=== PATIENT | female | born 1990 | race Asian ===

== ENCOUNTER 2016-10-11 16:13 | Emergency (ER) | payer OTHER ==
[2016-10-11 16:31] VITALS: BP 98/71
[2016-10-11] MEDS ORDERED: Tetan/Diph/Pertus SYR(Tdap)* 0.5 ML SYR(BOOSTRIX) use SYR IM ONE (17:07)
--- NOTE | 2016-10-11 17:07 | RAD ---
HISTORY: Nasal trauma COMPARISONS: None VIEWS: 3, [place] views of the face, bilateral coned down lateral views of the nasal bones of the nose FINDINGS: BONE DENSITY: Normal. BONES: There is a nondisplaced transverse fracture of the nasal bones bilaterally, better seen on the left than on the right. JOINTS: There is no arthropathy. ALIGNMENT: There is no dislocation. SOFT TISSUES: Unremarkable. OTHER FINDINGS: None. IMPRESSION: NONDISPLACED NASAL BONE FRACTURE.
[2016-10-11] MEDS ORDERED: Ciprofloxacin TAB* 500 MG PO ONE (17:08)
--- NOTE | 2016-10-11 17:36 | UC ---
Epistaxis Nasal HPI - HPI Summary HPI Summary: WINDOW FELL INTO BRIDGE OF NOSE AT 1530 PM TODAY CAUSING SMALL CUT TO BRIDGE OF NOSE, AND RIGHT NOSTRIL NOSEBLEED. NO LOC. NO HEADACHE. NO NECK PAIN. NO FACIAL PAIN (OTHER THAN NOSE) NO PAIN WITH EYE MOVEMENT. 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 - Allergies/Home Medications Allergies/Adverse Reactions: Allergies Allergy/AdvReac Type Severity Reaction Status Date / Time Cephalexin Allergy Severe Rash Verified 10/11/16 16:25 Penicillins Allergy Severe Rash Verified 10/11/16 16:22 PMH/Surg Hx/FS Hx/Imm Hx Previously Healthy: Yes Endocrine History Of: Denies: Diabetes, Thyroid Disease Cardiovascular History Of: Denies: Cardiac Disorders, Hypertension Respiratory History Of: Denies: COPD, Asthma GI/ History Of: Denies: Ulcer - Surgical History Surgical History: None - Family History Known Family History: Negative: Blood Disorder - Social History Occupation: Student Lives: Alone Alcohol Use: None Substance Use Type: None Smoking Status (MU): Never Smoked Tobacco Review of Systems Constitutional: Negative Skin: Other - 0.5 CM X 0.3 CM LACERATION TO CENTRAL NOSE ENT: Nasal Discharge Respiratory: Negative Cardiovascular: Negative Gastrointestinal: Negative Genitourinary: Negative Motor: Negative Neurovascular: Negative Musculoskeletal: Negative Neurological: Negative Psychological: Negative All Other Systems Reviewed And Are Negative: Yes Physical Exam Triage Information Reviewed: Yes Appearance: Well-Appearing, No Pain Distress, Well-Nourished Vital Signs: Initial Vital Signs Temp 99.4 F 10/11/16 16:25 Pulse 72 10/11/16 16:25 Resp 16 10/11/16 16:25 BP 98/71 10/11/16 16:25 Pulse Ox 100 10/11/16 16:25 Vital Signs Reviewed: Yes Eye Exam: Normal Eyes: Positive: Conjunctiva Clear ENT: Positive: Hearing grossly normal, Pharynx normal, Nasal drainage - RESOLVED Dental Exam: Normal Neck exam: Normal Neck: Positive: Supple, Nontender Respiratory Exam: Normal Respiratory: Positive: Chest non-tender, Lungs clear, Normal breath sounds, No respiratory distress Cardiovascular Exam: Normal Cardiovascular: Positive: RRR, No Murmur Abdominal Exam: Normal Abdomen Description: Positive: Nontender Musculoskeletal Exam: Normal Neurological Exam: Normal Psychological Exam: Normal Skin: Positive: Other - 0.5 CM X 0.3 CM LACERATION ON NOSE Epistaxis Nasal Course/Dx - Course Course Of Treatment: WOUND IRRIGATED, DRY NONSTICK DRESSING APPLIED. ALLERGIC TO PCN AND KEFLEX, GIVEN 500 mg CIPRO PO. NO SERVICES ONCALL FOR EITHER ENT OR FACIAL TRAUMA TODAY. PATIENT ADVISED TO CALL REFERRAL NUMBERS TOMORROW FOR DRS: [facility] [place]. - Differential Dx/Diagnosis Differential Diagnosis/HQI/PQRI: Trauma Provider Diagnoses: OPEN NONDISPLACED NASAL BONE FRACTURE - Physician Notifications Discussed Patient Care With: DR LEWIS Time Discussed With Above Provider: 17:00 Instructed by Provider To: Have Pt Call For Appt. Discharge - Discharge Plan Condition: Stable Disposition: HOME Prescriptions: Ciprofloxacin HCl [Cipro 500 MG TAB] 500 mg PO BID #20 tab Patient Education Materials: Nasal Fracture (ED), Laceration Without Closure ( ED) Referrals: [facility] [Outside] Lee Kerns MD [Medical Doctor] - Tavon Barger MD [Medical Doctor] - Hardeep Kaba MD [Doctor of Dental Medicine] - Additional Instructions: YOU HAVE A NONDISPLACED OPEN FRACTURE OF THE NASAL BONE. IT IS IMPORTANT THAT YOU SEEK FOLLOW-UP TOMORROW WITH ONE OF THE ENT OR FACIAL TRAUMA SPECIALISTS PROVIDED REFERRALS. Images Head: 1 - 0.5 CM X 0.3 CM LACERATION ON NOSE
== END 2016-10-11 17:45 | disposition home or self-care (01) ==
LOC: UCEAST 16:13
DX: S02.2XXB Fracture of nasal bones, initial encounter for open fracture (principal); W22.8XXA Striking against or struck by other objects, initial encounter; Y93.9 Activity, unspecified; Y92.9 Unspecified place or not applicable; Z88.1 Allergy status to other antibiotic agents; Z88.0 Allergy status to penicillin
CPT/HCPCS: 70160; 90715; 99202; A9270-GY; G0463